=== PATIENT | female | born 1990 ===

== ENCOUNTER 2017-02-15 08:52 | Emergency (ER) | payer MEDICAID, OTHER ==
--- NOTE | 2017-02-15 10:42 | C.PDOC ---
History Of Present Illness 26 yr old female presents to the ER with complaints of sore throat, runny nose, fever, generalized body aches for the past 5 days. Patient states she saw her PMD who started her on a ZPack but told her if she doesn't feel better in 24 hrs to come to ED. Patient reports she has a history of Strep and "doesn't feel too good". Patient denies chest pain, SOB, nausea, vomiting, abdominal pain, diarrhea, headache, weakness or numbness. Time Seen by Provider: 02/15/17 09:40 Chief Complaint (Nursing): Flu-like Symptoms History Per: Patient History/Exam Limitations: no limitations Onset/Duration Of Symptoms: Days (5) Current Symptoms Are (Timing): Still Present Location Of Pain: None Sick Contacts (Context): None Past Medical History Reviewed: Historical Data, Nursing Documentation, Vital Signs Vital Signs: Last Vital Signs Temp 98.2 F 02/15/17 11:21 Pulse 80 02/15/17 11:21 Resp 20 02/15/17 11:21 BP 116/77 02/15/17 11:21 Pulse Ox 97 02/15/17 11:46 Family History: States: No Known Family Hx Review Of Systems Except As Marked, All Systems Reviewed And Found Negative. Constitutional: Positive for: Fever (Subjective), Other ((+) Generalized body aches) ENT: Positive for: Nose Discharge, Throat Pain (Sore throat ) Cardiovascular: Negative for: Chest Pain Respiratory: Negative for: Shortness of Breath Gastrointestinal: Negative for: Nausea, Vomiting, Abdominal Pain, Diarrhea Neurological: Negative for: Weakness, Numbness, Headache Physical Exam - Physical Exam Appears: Well, Non-toxic, No Acute Distress Skin: Warm, Dry, No Rash Head: Atraumatic, Normacephalic Eye(s): bilateral: Normal Inspection, PERRL, EOMI Ear(s): Bilateral: TM Erythema Nose: Normal Oral Mucosa: Moist Throat: Erythema, No Exudate, No Drooling, Other (Uvula midline) Neck: Normal, Normal ROM, Supple Chest: Symmetrical, No Tenderness Cardiovascular: Rhythm Regular, No Murmur Respiratory: Normal Breath Sounds, No Rales, No Rhonchi, No Stridor, No Wheezing Extremity: Normal ROM, No Swelling Neurological/Psych: Oriented x3, Normal Speech, Normal Motor ED Course And Treatment O2 Sat by Pulse Oximetry: 97 Medical Decision Making Medical Decision Making: PLAN: * Leslie Spot * Influenza * Rapid Strep * Motrin PO * Tylenol PO Disposition Counseled Patient/Family Regarding: Studies Performed, Diagnosis, Need For Followup, Rx Given - Disposition Referrals: [facility] [Outside] Disposition: HOME/ ROUTINE Disposition Time: 11:53 Condition: STABLE Additional Instructions: Follow up with your doctor, of no doctor, follow up in our clinic. Take Motrin for pain and fever, get plenty rest and drink plenty fluids. Prescriptions: Ibuprofen [Motrin] 1 tab PO TID PRN #30 tab PRN Reason: Pain Instructions: Viral Syndrome (ED) Forms: General Discharge Instructions, Work Excuse - POA Present On Arrival: None - Clinical Impression Clinical Impression: Influenza-like illness - Scribe Statement The provider has reviewed the documentation as recorded by the Scribe Bri Muniz Provider Attestation: All medical record entries made by the Scribe were at my direction and personally dictated by me. I have reviewed the chart and agree that the record accurately reflects my personal performance of the history, physical exam, medical decision making, and the department course for this patient. I have also personally directed, reviewed, and agree with the discharge instructions and disposition.
[2017-02-15 12:27] VITALS: BP 124/72; PULSE 75; RESP 18; TEMP 98.6; O2SAT 98
== END 2017-02-15 12:27 | disposition home or self-care (01) ==
LOC: C.ER 08:52
DX: J11.1 Influenza due to unidentified influenza virus with other respiratory manifestations (principal)